=== PATIENT | female | born 1935 | race Two or more races ===

== ENCOUNTER → 2017-04-25 | Emergency (ER) | payer OTHER ==
[~2017-04-25] VITALS: Ht 157.5 cm; Wt 59.0 kg
[~2017-04-25] MED LIST: ANASPAZ0.125 MG PO; BONIVA150 MG PO; CAL-600 W/VIT D1 TAB PO; CHROMIUM PICO PO; CORTISONE25 MG PO; OMEPRAZOLE20 MG PO; PLAVIX75 MG PO; SINGULAIR10 MG PO; XOPENEX0.63 MG/3 IH
== END | disposition home or self-care (01) ==
LOC: ER 09:32
DX: R55 Syncope and collapse (principal)

== ENCOUNTER 2017-11-13 08:02 | Emergency (ER) | payer OTHER ==
[~2017-11-13] VITALS: Ht 162.6 cm; Wt 61.2 kg
== END 2017-11-13 23:12 | disposition home or self-care (01) ==
LOC: ER 08:02
DX: M54.5 Low back pain (principal)

== ENCOUNTER 2017-12-02 07:37 | Outpatient (CLI) | payer OTHER | END 2017-12-02 07:40 | disposition home or self-care (01) | LOC: RX STUDY 07:37 | DX: R13.14 Dysphagia, pharyngoesophageal phase (principal) ==

== ENCOUNTER 2018-05-15 08:18 | Outpatient (CLI) | payer OTHER | END 2018-05-15 08:28 | disposition home or self-care (01) | LOC: RAD 08:18 | DX: M99.02 Segmental and somatic dysfunction of thoracic region (principal); M99.01 Segmental and somatic dysfunction of cervical region; M99.03 Segmental and somatic dysfunction of lumbar region; M99.04 Segmental and somatic dysfunction of sacral region; M99.05 Segmental and somatic dysfunction of pelvic region ==

== ENCOUNTER 2018-05-21 09:14 | Outpatient (CLI) | payer OTHER | END 2018-05-21 14:40 | disposition home or self-care (01) | LOC: TOM 09:14 | DX: E03.8 Other specified hypothyroidism (principal) ==

== ENCOUNTER → 2018-10-06 | Outpatient (CLI) | payer OTHER | END | disposition home or self-care (01) | LOC: RAD 08:21 | DX: M19.90 Unspecified osteoarthritis, unspecified site (principal); M48.47XA Fatigue fracture of vertebra, lumbosacral region, initial encounter for fracture ==

== ENCOUNTER → 2018-10-21 08:22 | Outpatient (CLI) | payer OTHER | END | disposition home or self-care (01) | LOC: LAB 08:22 | DX: E03.8 Other specified hypothyroidism (principal); I10 Essential (primary) hypertension; E11.9 Type 2 diabetes mellitus without complications; E78.2 Mixed hyperlipidemia; Z12.11 Encounter for screening for malignant neoplasm of colon; R10.84 Generalized abdominal pain; C18.9 Malignant neoplasm of colon, unspecified; D51.3 Other dietary vitamin B12 deficiency anemia; J44.9 Chronic obstructive pulmonary disease, unspecified; I67.89 Other cerebrovascular disease; R63.4 Abnormal weight loss; D50.8 Other iron deficiency anemias; D51.8 Other vitamin B12 deficiency anemias; E55.9 Vitamin D deficiency, unspecified; K90.89 Other intestinal malabsorption; R97.0 Elevated carcinoembryonic antigen [CEA]; R97.8 Other abnormal tumor markers ==

== ENCOUNTER 2018-10-21 09:37 | Outpatient (CLI) | payer OTHER | END 2018-10-21 11:31 | disposition home or self-care (01) | LOC: RX STUDY 09:37 | DX: R63.4 Abnormal weight loss (principal); R10.13 Epigastric pain; R13.14 Dysphagia, pharyngoesophageal phase ==

== ENCOUNTER 2018-11-11 07:07 | Emergency (ER) | payer OTHER ==
[~2018-11-11] VITALS: Ht 157.5 cm; Wt 55.3 kg
== END 2018-11-11 10:17 | disposition home or self-care (01) ==
LOC: ER 07:07
DX: S80.01XA Contusion of right knee, initial encounter (principal); M25.561 Pain in right knee; W18.09XA Striking against other object with subsequent fall, initial encounter; Y93.89 Activity, other specified; Y92.018 Other place in single-family (private) house as the place of occurrence of the external cause; Y99.8 Other external cause status

== ENCOUNTER 2018-12-31 07:04 | Outpatient (CLI) | payer OTHER | END 2018-12-31 17:00 | disposition home or self-care (01) | LOC: TOM 07:04 | DX: M54.5 Low back pain (principal); R41.3 Other amnesia; F03.90 Unspecified dementia, unspecified severity, without behavioral disturbance, psychotic disturbance, mood disturbance, and anxiety ==

== ENCOUNTER 2019-01-07 06:41 | Outpatient (CLI) | payer OTHER | END 2019-01-07 06:53 | disposition home or self-care (01) | LOC: LAB 06:41 | DX: E03.8 Other specified hypothyroidism (principal); R41.89 Other symptoms and signs involving cognitive functions and awareness; R41.3 Other amnesia; F03.90 Unspecified dementia, unspecified severity, without behavioral disturbance, psychotic disturbance, mood disturbance, and anxiety ==

== ENCOUNTER 2019-01-07 07:22 | Outpatient (CLI) | payer OTHER | END 2019-01-07 17:00 | disposition home or self-care (01) | LOC: SONOGRAMA 07:22 | DX: I67.89 Other cerebrovascular disease (principal); C18.9 Malignant neoplasm of colon, unspecified; D51.3 Other dietary vitamin B12 deficiency anemia; J44.9 Chronic obstructive pulmonary disease, unspecified; R63.4 Abnormal weight loss; E78.2 Mixed hyperlipidemia ==

== ENCOUNTER 2019-05-13 11:12 | Outpatient (CLI) | payer OTHER | END 2019-05-13 12:20 | disposition home or self-care (01) | LOC: NUCLEAR 11:12 | DX: G30.8 Other Alzheimer's disease (principal); G40.909 Epilepsy, unspecified, not intractable, without status epilepticus; R51 Headache; R41.2 Retrograde amnesia; I63.20 Cerebral infarction due to unspecified occlusion or stenosis of unspecified precerebral arteries | CPT/HCPCS: 78803; A9557 ==

== ENCOUNTER 2019-05-30 21:23 | Emergency (ER) | payer OTHER ==
[~2019-05-30] VITALS: Ht 154.9 cm; Wt 55.3 kg
[2019-05-30] MEDS ORDERED: VITAMIN B-121000 MC4 (21:30)
[2019-05-30] MEDS ORDERED: VITAMIN D3400 UNIT (21:31)
[2019-05-31] MEDS ORDERED: CEFUROXIME500 MG PO ×2 (00:56→01:01)
== END 2019-05-31 03:03 | disposition home or self-care (01) ==
LOC: ER 21:23
DX: N39.0 Urinary tract infection, site not specified (principal); R10.2 Pelvic and perineal pain; M25.551 Pain in right hip

== ENCOUNTER → 2019-10-07 | Outpatient (CLI) | payer OTHER ==
[~2019-10-07] MED LIST changes: +CEFUROXIME500 MG PO; +VITAMIN B-121000 MC4; +VITAMIN D3400 UNIT
== END | disposition home or self-care (01) ==
LOC: RAD 07:34
PROVIDERS: ATTEND Internal Medicine Rheumatology
DX: M15.0 Primary generalized (osteo)arthritis (principal)

== ENCOUNTER 2019-11-10 07:46 | Outpatient (CLI) | payer OTHER | END 2019-11-10 07:53 | disposition home or self-care (01) | LOC: LAB 07:46 | PROVIDERS: ATTEND Internal Medicine Rheumatology | DX: M81.0 Age-related osteoporosis without current pathological fracture (principal); R94.5 Abnormal results of liver function studies; M35.1 Other overlap syndromes; C90.00 Multiple myeloma not having achieved remission; I10 Essential (primary) hypertension ==

== ENCOUNTER 2019-11-10 08:23 | Outpatient (CLI) | payer OTHER | END 2019-11-10 08:25 | disposition home or self-care (01) | LOC: RAD 08:23 | PROVIDERS: ATTEND Internal Medicine Rheumatology | DX: R07.89 Other chest pain (principal) ==

== ENCOUNTER 2019-11-26 09:00 | Outpatient (CLI) | payer OTHER | END 2019-11-26 15:00 | disposition home or self-care (01) | LOC: LAB 09:00 | PROVIDERS: ATTEND Internal Medicine Cardiovascular Disease | DX: E55.9 Vitamin D deficiency, unspecified (principal) ==

== ENCOUNTER 2020-06-06 08:57 | Outpatient (CLI) | payer OTHER | END 2020-06-06 09:08 | disposition home or self-care (01) | LOC: RAD 08:57 | PROVIDERS: ATTEND Internal Medicine Cardiovascular Disease | DX: M12.9 Arthropathy, unspecified (principal); M48.47XA Fatigue fracture of vertebra, lumbosacral region, initial encounter for fracture ==

== ENCOUNTER 2020-07-05 09:21 | Outpatient (CLI) | payer OTHER | END 2020-07-05 18:00 | disposition home or self-care (01) | LOC: LAB 09:21 | PROVIDERS: ATTEND Internal Medicine Cardiovascular Disease | DX: I10 Essential (primary) hypertension (principal); M54.2 Cervicalgia; M25.511 Pain in right shoulder; E11.9 Type 2 diabetes mellitus without complications; E03.8 Other specified hypothyroidism; E78.2 Mixed hyperlipidemia; Z12.11 Encounter for screening for malignant neoplasm of colon; M81.0 Age-related osteoporosis without current pathological fracture; K29.70 Gastritis, unspecified, without bleeding ==

== ENCOUNTER 2021-04-17 07:24 | Outpatient (CLI) | payer OTHER | END 2021-04-17 07:36 | disposition home or self-care (01) | LOC: TOM 07:24 | PROVIDERS: ATTEND Internal Medicine | DX: R10.32 Left lower quadrant pain (principal) ==

== ENCOUNTER 2021-04-25 07:02 | Outpatient (CLI) | payer OTHER | END 2021-04-25 07:11 | disposition home or self-care (01) | LOC: LAB 07:02 | PROVIDERS: ATTEND Internal Medicine | DX: K21.9 Gastro-esophageal reflux disease without esophagitis (principal); D58.9 Hereditary hemolytic anemia, unspecified; D52.9 Folate deficiency anemia, unspecified; E66.9 Obesity, unspecified; E03.8 Other specified hypothyroidism; E55.9 Vitamin D deficiency, unspecified ==

== ENCOUNTER 2021-05-16 07:10 | Day surgery (SDC) | payer OTHER | END 2021-05-16 11:00 | disposition home or self-care (01) | LOC: AMB-ENDOS 07:10 | PROVIDERS: ATTEND Internal Medicine Gastroenterology | DX: K29.40 Chronic atrophic gastritis without bleeding (principal) ==

== ENCOUNTER 2021-11-14 07:52 | Outpatient (CLI) | payer OTHER | END 2021-11-14 08:01 | disposition home or self-care (01) | LOC: RAD 07:52 | PROVIDERS: ATTEND Orthopaedic Surgery | DX: M54.50 Low back pain, unspecified (principal); Z96.641 Presence of right artificial hip joint ==

== ENCOUNTER 2022-01-22 12:30 | Outpatient (CLI) | payer OTHER | END 2022-01-22 12:38 | disposition home or self-care (01) | LOC: RAD 12:30 | PROVIDERS: ATTEND Physical Medicine & Rehabilitation | DX: M54.50 Low back pain, unspecified (principal); M17.0 Bilateral primary osteoarthritis of knee; S93.401A Sprain of unspecified ligament of right ankle, initial encounter; S93.402A Sprain of unspecified ligament of left ankle, initial encounter; W19.XXXA Unspecified fall, initial encounter ==

== ENCOUNTER 2022-04-18 07:00 | Emergency (ER) | payer OTHER ==
[~2022-04-18] VITALS: Ht 157.5 cm; Wt 55.3 kg
== END 2022-04-18 15:55 | disposition home or self-care (01) ==
LOC: ER 07:00
DX: J44.1 Chronic obstructive pulmonary disease with (acute) exacerbation (principal); K21.9 Gastro-esophageal reflux disease without esophagitis; Z95.0 Presence of cardiac pacemaker; Z88.0 Allergy status to penicillin; Z88.2 Allergy status to sulfonamides; J45.901 Unspecified asthma with (acute) exacerbation; I48.91 Unspecified atrial fibrillation

== ENCOUNTER 2022-06-26 19:41 | Emergency (ER) | payer OTHER ==
[~2022-06-26] VITALS: Ht 157.5 cm; Wt 49.9 kg
[2022-06-26] MEDS ORDERED: PEPCID AC20 MG PO ×2 (20:20→22:21)
[2022-06-26] MEDS ORDERED: ACIPHEX20 MG PO (20:21)
[2022-06-26] MEDS ORDERED: TURMERIC 500 M1 EACH PO (20:21)
[2022-06-26] MEDS ORDERED: RIFAMPIN MC (20:22)
[2022-06-26] MEDS ORDERED: FOLIC ACID0.8 M1 PO (20:22)
[2022-06-26] MEDS ORDERED: LEVSIN/SL0.125 MG SL (22:21)
== END 2022-06-27 01:02 | disposition home or self-care (01) ==
LOC: ER 19:41
DX: K29.70 Gastritis, unspecified, without bleeding (principal); Z88.6 Allergy status to analgesic agent; Z88.2 Allergy status to sulfonamides; I11.9 Hypertensive heart disease without heart failure; I25.10 Atherosclerotic heart disease of native coronary artery without angina pectoris

== ENCOUNTER 2022-10-04 13:49 | Emergency (ER) | payer OTHER ==
[~2022-10-04] VITALS: Ht 165.1 cm; Wt 67.1 kg
[~2022-10-04 13:49] MED LIST changes: +ACIPHEX20 MG PO; +FOLIC ACID0.8 M1 PO; +LEVSIN/SL0.125 MG SL; +PEPCID AC20 MG PO; +RIFAMPIN MC; +TURMERIC 500 M1 EACH PO
[2022-10-04] MEDS ORDERED: CARAFATE1 GM PO (19:25)
[2022-10-04] MEDS ORDERED: PEPCID AC20 MG PO (19:25)
== END 2022-10-04 22:00 | disposition home or self-care (01) ==
LOC: ER 13:49
DX: K29.70 Gastritis, unspecified, without bleeding (principal); R11.2 Nausea with vomiting, unspecified